=== PATIENT | male | born 1965 | race Caucasian/White ===

== ENCOUNTER 2024-10-18 22:03 | Emergency (ER) | payer OTHER ==
[~2024-10-18] VITALS: Ht 185.4 cm; Wt 93.3 kg
--- NOTE | 2024-10-18 22:42 | Physician Documentation ---
History of Present Illness ~ Chief Complaint: Dizziness Stated Complaint: CVA Time Seen by MD: 22:21 Source: patient, EMS, EMS notes reviewed, old records Mode of Arrival: EMS Exam Limitations: no limitations HPI Chief Complaint: Dizziness Caveat: None Independent Historians: Parents, paramedics History of Present Illness: Patient is a 58-year-old man transferred by paramedics from [facility] for Vertigo and possible cerebellar stroke. Patient's last known well time was Monday some time, two days ago when he developed dizziness and difficulty walking. Patient gets the dizziness when he stands up. Patient denies any difficulties with speech. Patient denies any weakness in one arm or one leg. Patient denies any nausea or vomiting or diarrhea. Patient describes his dizziness as a spinning sensation. Patient has been lying in bed a couple of days because of the dizziness. Patient was seen in [facility] and Monday and prescribed meclizine and Zofran and was discharged home. Patient returned to the ER earlier today with continued vertigo. Review of systems: All systems were reviewed and are negative except for what is indicated in the history of present illness. Past Medical History: Past Surgical History: Noncontributory Social History: Tobacco use, smokes marijuana, denies other drug use Medications: Reviewed as documented Nursing Notes Allergies: Reviewed as documented in Nursing Notes Medication Reconciliation Allergies: Coded Allergies: No Known Allergies (Unverified , 10/18/24) Miscellaneous Medications Home Med List (No Home Medications), (Reported) Review of Systems All Other Systems at this time: Reviewed and Negative ROS Patient denies any other acute symptoms other than above. All other systems are negative Physical Exam Vital Signs: RN Vital Signs have been reviewed: Yes, Temperature: 98.6, Heart Rate: 62, Respiratory Rate: 16, BP: 162/75, Pulse Oximetry: 95, Weight: 93.300 Oxygen Flow Rate: 0 Pulse Oximetry Reflects: adequate oxygenation Physical Exam General Appearance: MILD DISTRESS HEENT: Normal OP, moist oral mucosa, PERRL, EOMI Neck: supple, normal ROM, trachea midline Pulmonary: No respiratory distress, CTA, BS equal Cardiac: RRR, no murmur, rub or gallop, GI: nondistended, soft, nontender, normal bowel sounds, no guarding, no rebound Extremities: normal ROM, no swelling, non-tender Skin: intact, dry, warm, no rashes Neuro: AAOx3, speech is clear, no focal motor weakness, NO PRONATOR DRIFT, [id number] INTACT BILATERALLY, CRANIAL NERVES 2-12 GROSSLY INTACT, Psych: normal affect, good eye contact, no apparent hallucination, normal speech Progress Results/Orders Results/Orders Orders - LARISA QURESHI MD Accucheck (10/18/24 22:22) Urinalysis, Cult If Indicated (10/18/24 22:22) Chest,Single View (10/18/24 22:25) Ct Head (10/18/24 22:22) Monitor (10/18/24 22:22) [place] (10/18/24 22:22) [employer] Prov.Neuro Consult (10/18/24 22:22) Page Hospitalist (10/18/24 22:36) Fill Out Med Reconciliation (10/18/24 22:36) Completed Orders - LARISA QURESHI MD Electrocardiogram (10/18/24 22:22) Cbc/Diff (10/18/24 22:22) Chest,Single View (10/18/24 22:25) Ct Head (10/18/24 22:22) BMP (10/18/24 22:22) CMP (10/18/24 22:22) Vital Signs 10/18/24 10/18/24 10/18/24 22:05 23:05 23:21 Temp 98.6 Pulse 62 76 Resp 16 18 B/P (MAP) 162/75 160/89 (112) Pulse Ox 95 100 O2 Flow Rate 0 0 Laboratory Tests Test 10/18/24 22:40 White Blood Count 10.6 Red Blood Count 5.19 Hemoglobin 16.4 Hematocrit 47.0 Mean Corpuscular Volume 90.5 Mean Corpuscular Hemoglobin 31.7 H Mean Corpuscular Hemoglobin Concent 35.0 Red Cell Distribution Width 12.8 Platelet Count 302 Mean Platelet Volume 7.5 Neutrophils (%) (Auto) 88.4 H Lymphocytes (%) (Auto) 8.0 L Monocytes (%) (Auto) 2.9 Eosinophils (%) (Auto) 0.3 Basophils (%) (Auto) 0.4 Neutrophils # (Auto) 9.3 H Lymphocytes # (Auto) 0.8 L Monocytes # (Auto) 0.3 Eosinophils # (Auto) 0.0 Basophils # (Auto) 0.0 CBC Comment Sodium Level 134 L Potassium Level 3.8 Chloride Level 100 Carbon Dioxide Level 25.8 Anion Gap 8 Blood Urea Nitrogen 12 Creatinine 0.95 Estimated GFR/1.73 m2 82 BUN/Creatinine Ratio 12.6 Glucose Level 114 H Calcium Level 8.7 Total Bilirubin 0.5 Aspartate Amino Transf (AST/SGOT) 18 Alanine Aminotransferase (ALT/SGPT) 24 Alkaline Phosphatase 88 Total Protein 7.3 Albumin 3.7 Globulin 3.6 Albumin/Globulin Ratio 1.0 L Chemistry Comments Medical Decision Making Additional info obtained from: old records Findings Differential diagnosis includes but is not limited to: Ischemic stroke, hemorrhagic stroke, vestibular dysfunction, labyrinthitis EKG independent interpretation: Performed at Chest x-ray, single view, indication: Stroke, dizziness Independent interpretation: Lungs are clear, normal mediastinum, normal cardiac silhouette. No acute cardiopulmonary process. Head CT without IV contrast, indication: Acute stroke Impression: Acute appearing inferior left cerebellar infarct. No evidence of acute intracranial hemorrhage. Acute ischemic infarcts Laboratory data independent interpretation: CBC: Unremarkable CMP: Unremarkable Emergency department course/medical decision-making: Patient is a 58-year-old man with vertigo and difficulty walking who may have had an acute ischemic stroke in the left cerebellum. Patient has been given aspirin prior to arrival. Neurology consult will be obtained. Patient will require admission for further workup and MRI of the brain. CTA of the head and neck done at prior hospital was negative for LVO. Given the location and size of the infarct Plavix is going to be withheld because of the potential conversion to hemorrhage. Test results and treatment plan reviewed with the patient and family. Consultation/communications: 10:55 p.m.: Case discussed with the hospitalist resident Dr. Salguero. He will evaluate the patient for admission. 11:35 p.m.: Case discussed with the neurologist. 11:41 p.m.: Case discussed with the radiologist confirming a left inferior cerebellar stroke. No hemorrhagic conversion Departure Time of Disposition: 22:44 Disposition: ADMITTED INPATIENT Admitted to Inpatient Unit: to hospitalist Admission Level of Care: Neuro with Tele Impression: Primary Impression: Cerebellar stroke Additional Impression: Vertigo Condition: Fair Referrals: NO PRIMARY CARE PROVIDER (PCP) Education Educated: Patient, Family Educated regarding: diagnosis, treatment Signature Scribe Signature: No scribe Attestation: No scribe KIERA,LARISA R MD Oct 18, 2024 22:42
--- NOTE | 2024-10-18 22:43 | RADIOLOGY REPORT ---
CHEST RADIOGRAPH Indication: aloc Technique: Single frontal view of the chest was obtained COMPARISON: None FINDINGS: Lines and Tubes: None Lungs: Clear Pleura: No effusion. No pneumothorax. Cardiomediastinal contours: Unremarkable Bones: Unremarkable IMPRESSION: 1. No acute disease.
[2024-10-18 22:48] LABS: MEAN PLATELET VOLUME 7.5 FL (7.4-10.4); RED CELL DISTRIBUTION WIDTH 12.8 % (11.5-14.5)
--- NOTE | 2024-10-18 22:59 | ELECTROCARDIOGRAPH REPORT ---
[facility] Test Date: 2024-10-18 Test Time: 22:59:41 Pat Name: LOREN RUSSO Department: [facility] Patient ID: [id number] Room: ED 4 Gender: M [employer]: : 1965 Requested By: LARISA QURESHI Order Number: [id number] Reading MD: Dr. John Seaman Measurements Intervals [place] Rate: 59 P: 59 TN: 153 QRS: 68 QRSD: 92 T: 67 QT: 500 QTc: 496 Interpretive Statements Sinus bradycardia Borderline prolonged QT interval Baseline wander in lead(s) I,II,aVR,aVF Electronically Signed On 11-27-2024 18:37:[address] John Seaman Please click the below link to view image of tracing.
[2024-10-18 23:03] LABS: CREATININE 0.95 MG/DL (0.60-1.10); TOTAL CARBON DIOXIDE 25.8 MMOL/L (24-32); eCRCL 98 ML/MIN; eGFR 82 ML/MIN
[2024-10-18] MEDS ORDERED: NO HOME MEDS (23:16)
[2024-10-18] MEDS ORDERED: magnesium sulf-water 2g/50mL 50 ML IV PRN (23:20)
[2024-10-18] MEDS ORDERED: mag hydrox/Alum hydrox/simeth 30ml oral suspension PO PRN (23:20)
[2024-10-18] MEDS ORDERED: magnesium Cl slow-release 64mg tablet PO PRN (23:20)
[2024-10-18] MEDS ORDERED: potassium Cl 20 mEq SR tablet PO PRN ×2 (23:20)
[2024-10-18] MEDS ORDERED: ondansetron/PF 4mg/2ml inj IV PRN (23:20)
[2024-10-18] MEDS ORDERED: potassium Cl 40MEQ/1/2NS 520ml 520 ML IV PRN (23:20)
[2024-10-18] MEDS ORDERED: magnesium hydroxide 30ml (MOM) UD suspension PO PRN (23:20)
[2024-10-18] MEDS ORDERED: magnesium sulf-water 4G/100mL 100 ML IV PRN (23:20)
--- NOTE | 2024-10-18 23:44 | RADIOLOGY REPORT ---
COMPUTERIZED TOMOGRAPHY OF THE HEAD WITHOUT CONTRAST REASON FOR STUDY: Altered level of consciousness. COMPARISON: None TECHNIQUE: Helical tomographic scans were obtained through the brain. 2-D coronal and sagittal refor matted images are provided. Radiation optimization: All CT scans at this facility use at least one of these dose optimization techniques: Automated exposure control mA and/or kV adjustment per patient s ize (includes targeted exams where dose is matched to clinical indication) or iterative reconstructio n. RADIATION DOSE: CTDI: 67 mGy DLP: 1258 mGy-cm FINDINGS: There is loss of tillman-white differentiation in much of the inferior left cerebellum most co nsistent with acute ischemic infarct. No suspicious intracranial hyperdensity to suggest acute blood. There is no mass effect nor midline shift. There is no hydrocephalus. The suprasellar cistern is in tact. The calvarium is intact. There is a small retention cyst versus polyp in the left maxillary sin us. The visualized mastoid air cells and paranasal sinuses are otherwise clear. IMPRESSION: Acute appearing inferior left cerebellar infarct. No evidence of acute intracranial hemorrhage. Acute ischemic infarcts Critical Result: Infarct Findings discussed with LARISA QURESHI at 10/18/2024 11:42 PM [place], and acknowledged receipt and u nderstanding of the findings. #CRITICAL#
[2024-10-19 01:17] LABS: LEUKOCYTE ESTERASE ,URINE NEGATIVE (Neg); NITRITES, URINE NEGATIVE (Neg); OCCULT BLOOD,URINE NEGATIVE (Neg)
[2024-10-19 01:19] LABS: UA COLLECTION TYPE NON-SPECIFIED
[2024-10-19 01:22] LABS: MUCUS STRANDS FEW /LPF (Neg); SQUAMOUS EPITHELIAL CELL,UR FEW /LPF (FEW)
[2024-10-19 01:23] LABS: AMORPHOUS PHOSPHATES 1+
--- NOTE | 2024-10-19 01:32 | [facility] CONSULT REPORT ---
[facility] Procedure Note [facility] Procedure Note Consult [facility] Note # Demographics Consult Type: General Neurology Patient Location: Emergency Room First Name: LOREN Last Name: RAFAELA Date of : 1965 Age: 58 Gender: Male Facility: [facility] Time of Initial Page (): 10/18/2024 23:08 Time of Return Call (): 10/18/2024 23:09 # HPI History: 58yom who p/w vertigo x 2 days. CTH with L acute to subacute cerebellar infarct. CTA head and neck was reportedly WNL. # Scores Time of exam and NIHSS (): 10/19/2024 00:04 Level of Consciousness 1a: [0] = Alert; keenly responsive LOC Questions 1b: [0] = Answers both questions correctly LOC Commands 1c: [0] = Performs both tasks correctly Best Gaze 2: [0] = Normal Visual 3: [0] = No visual loss Facial Palsy 4: [0] = Normal symmetrical movements Motor Arm Left 5a: [0] = No drift Motor Arm Right 5b: [0] = No drift Motor Leg Left 6a: [0] = No drift Motor Leg Right 6b: [0] = No drift Limb Ataxia 7: [1] = Present in one limb Sensory 8: [0] = Normal Best Language 9: [0] = No aphasia Dysarthria 10: [0] = Normal Extinction and Inattention 11: [0] = No abnormality NIHSS Total: 1 # Data Head CT: - preliminarily reviewed by me, please refer to radiology read for official reading large L cerebellar infarct # Assessment Impression: - Ischemic Stroke (Acute) Large L cerebellar infarct, [facility] with NSGY availability f or possible subocc decompression if any worsening neuro exam. Also recommend observation in ICU for frequent neuro checks. # Plan Thrombolytic/Intervention: NOT IV Thrombolysis or IA Intervention candidate Thrombolytic Exclusion: > 4.5 hours Intraarterial Exclusion: - clinical exam not consistent with presence of large vessel occlusion (LVO), can reconsider if LVO found on vascular imaging Blood Pressure Management: Use labetolol 10-20mg IV PRN or nicardipine gtt to maintain BP parameters Imaging: (urgency: routine): - MRI Brain without contrast Diagnostic Test: - echo with bubble study Telemetry for a fib monitoring Therapy/Evaluation: - PT/OT evaluation - speech/swallow consultation - NPO until swallow evaluation Medication: - aspirin 81 mg daily atorvastatin 80mg daily, goal LDL <70 Other: - If patient has any neurological deterioration please call me back immediately - consult neurosurgery Additional Recommendations: - ICU admission for frequent neuro checks, pending MRI - Transfer [facility] for NSGY consult for consideration of suboccipital crani if any deterioration in neuro exam - Avoid dehydration and relative hypotension - Risk factor modification, including smoking cessation and alcohol moderation if appropriate - Monitor glucose and correct as needed - If cryptogenic non-lacunar stroke on MRI, obtain outpatient cardiac monitoring for a fib - Call back for neurological deterioration Disposition: transfer to ICU # Logistics Attestation of consult completion: The patient is located at: [facility]. Facility staff participated in the visit. I performed this telemedicine visit from my offsite office utilizing interactive 2 way audio and visual telecommunication technology. Total time spent in telemedicine encounter: I spent 23 minutes reviewing clinical data and/or imaging, obtaining history, examining the patient, communicating with the onsite care team, and in preparation of this report. # Demographics First Name: LOREN Last Name: RAFAELA Facility: [facility] Neuro Consult Order placed for: Yes MEETA GAMINO MD Oct 19, 2024 01:32
[2024-10-19 02:25] LABS: MEAN PLATELET VOLUME 7.7 FL (7.4-10.4); RED CELL DISTRIBUTION WIDTH 13.0 % (11.5-14.5)
[2024-10-19 02:37] VITALS: BP 170/99; PULSE 64; RESP 21; TEMP 98.2; O2SAT 97
[2024-10-19 02:42] LABS: CHOL/HDL RATIO 4.3 (0.00-4.99); CREATININE 0.80 MG/DL (0.60-1.10); LDL CHOLESTEROL 145 MG/DL (50-100); TOTAL CARBON DIOXIDE 24.0 MMOL/L (24-32); eCRCL 117 ML/MIN; eGFR > 90 ML/MIN
[2024-10-19] MEDS ORDERED: K and/or MAG REPLACEMENT MC SCH (08:00)
[2024-10-19] MEDS ORDERED: docusate sod 100mg capsule PO SCH (08:00)
== END 2024-10-19 02:57 | disposition admitted as inpatient to this hospital (09) ==
LOC: ER 22:05 → UNDOADMIN 23:21 → ED HOLD 23:21
DX: I63.9 Cerebral infarction, unspecified (principal); R42 Dizziness and giddiness; F12.90 Cannabis use, unspecified, uncomplicated
CPT/HCPCS: 36415; 70450; 71045; 80053; 80061; 81001; 83036; 83735; 85025; 93005; 99285; G0378